=== PATIENT | male | born 1990 | race Caucasian/White ===

== ENCOUNTER 2018-04-10 18:55 | Emergency (ER) | payer OTHER ==
[~2018-04-10] VITALS: Ht 182.9 cm; Wt 68.7 kg
[2018-04-10 21:04] VITALS: BP 136/60
== END 2018-04-10 21:05 | disposition home or self-care (01) ==
LOC: RME 18:55 → EME 18:55 → RME 21:05
DX: S41.111A Laceration without foreign body of right upper arm, initial encounter (principal); S70.211A Abrasion, right hip, initial encounter; S80.211A Abrasion, right knee, initial encounter; S80.811A Abrasion, right lower leg, initial encounter; V18.0XXA Pedal cycle driver injured in noncollision transport accident in nontraffic accident, initial encounter; Y93.55 Activity, bike riding; Z23 Encounter for immunization
CPT/HCPCS: 99281; 99284